=== PATIENT | female | born 1970 | race African-American/Black ===

== ENCOUNTER → 2016-05-06 | Outpatient (CLI) | payer OTHER | END | disposition home or self-care (01) | LOC: RADMN 08:20 | PROVIDERS: ATTEND Pain Medicine Interventional Pain Medicine | DX: M48.02 Spinal stenosis, cervical region (principal); M25.78 Osteophyte, vertebrae; M47.892 Other spondylosis, cervical region | CPT/HCPCS: 72141 ==